=== PATIENT | female | born 1970 | race Two or more races ===

== ENCOUNTER → 2023-07-31 10:55 | Outpatient (REF) | payer OTHER, SELFPAY | LOC: WDC 10:55 | PROVIDERS: ATTENDING PHYSICIAN Obstetrics & Gynecology Gynecology; FAMILY PHYSICIAN Family Medicine | DX: Z12.31 Encounter for screening mammogram for malignant neoplasm of breast (principal) | CPT/HCPCS: 77063; 77067 ==

== ENCOUNTER 2024-05-15 06:16 | Day surgery (SDC) | payer OTHER, SELFPAY ==
[2024-05-15 11:34] VITALS: BMI 19.5
[2024-05-15 11:35] VITALS: BP 121/43; BMI 19.5
[2024-05-15 12:21] VITALS: BP 101/41
[2024-05-15 12:30] VITALS: BP 100/64
[2024-05-15 12:45] VITALS: BP 102/40
== END 2024-05-15 13:15 | disposition home or self-care (01) ==
LOC: GI 06:16
PROVIDERS: ATTENDING PHYSICIAN Internal Medicine Gastroenterology
DX: K86.9 Disease of pancreas, unspecified (principal)
CPT/HCPCS: 43237

== ENCOUNTER → 2024-08-07 10:51 | Outpatient (REF) | payer OTHER, SELFPAY | LOC: WDC 10:51 | PROVIDERS: ATTENDING PHYSICIAN Obstetrics & Gynecology Gynecology; FAMILY PHYSICIAN Family Medicine | DX: Z12.31 Encounter for screening mammogram for malignant neoplasm of breast (principal) | CPT/HCPCS: 77063; 77067 ==